=== PATIENT | female | born 1985 | race Caucasian/White ===

== ENCOUNTER 2022-11-10 18:48 | Emergency (ER) | payer OTHER ==
[2022-11-10 19:32] VITALS: TEMP 98; O2SAT 97
[2022-11-10] MEDS ORDERED: TORAdol 30 mg Injection IM ONE (20:06)
[2022-11-10 20:08] LABS: HCG URINE TEST NEGATIVE (NEGATIVE)
[2022-11-10 20:12] LABS: Appearance Clear (Clear); Bacteria None Seen /HPF (None Seen); Bilirubin Negative (Negative); Epithelial Cells Rare /HPF (None Seen); Glucose, Urine Negative (Negative); Hyaline Casts NONE SEEN /LPF (0-2); Ketones Negative (Negative); Leukocyte Esterase Negative (Negative); Nitrite Negative (Negative); Ph 5.5 (4.6-8.0); Protein,Urine Dip Negative (Negative); Specific Gravity 1.025 (1.005-1.030); Urobilinogen 0.2 mg/dL (0.2); WBC 0-2 /HPF (0-5)
[2022-11-10 20:13] LABS: ADD URINE CULTURE? NO (NO); Blood Small (Negative)
--- NOTE | 2022-11-10 20:14 | ERPHSYRPT ---
- History of Present Illness Time Seen by Provider: 11/10/22 19:30 Source: patient Exam Limitations: no limitations Patient Subjective Stated Complaint: pt states she has been having bright red rectal bleeding with clots for the last 3 days. Triage Nursing Assessment: pt alert and orietned, answers questions approp. pt ambulates into room with steady gait noted. respraitions nonlabored. abd soft and nontender to light palpation. bowel sounds hypo. skin warm and dry. Physician History: Patient is a 37-year-old female presents to our ED for evaluation of bright red blood per rectum x3 days. Patient states she has had these problems in the past. Patient had a colonoscopy and was diagnosed with a polyp. Patient states she has been experiencing excessive diarrhea recently. She is got some vague diffuse abdominal pain. No trauma. No fever. No nausea vomiting or diaphoresis. Symptoms are mild to moderate in intensity. No specific worsening improving factors. Daughter at bedside. Patient she otherwise feels well. She voices no other complaints or concerns at this time. Portions of this note were created with voice recognition technology. There may be grammatical, spelling, punctuation or sound alike errors Timing/Duration: day(s) (3 days) Severity: moderate Modifying Factors: Improves With: nothing Associated Symptoms: denies symptoms Allergies/Adverse Reactions: artificial strawberry flavoring Allergy (Severe, Uncoded 11/10/22 19:35) lips, throat, mouth swelling tape Allergy (Mild, Uncoded 11/10/22 19:35) Blisters Home Medications: Desvenlafaxine Succinate [Desvenlafaxine Succinate ER] 50 mg PO DAILY 11/10/22 [History] Hydrocodone/Acetaminophen [Hydrocodone-Acetamin 10-325 mg] 0.5 each PO BIDPRN PRN 11/10/22 [History] Sertraline HCl [Zoloft] 100 mg PO DAILY 11/10/22 [History] Hx Tetanus, Diphtheria Vaccination/Date Given: Yes Hx Influenza Vaccination/Date Given: No Hx Pneumococcal Vaccination/Date Given: No Immunizations Up to Date: Yes Travel Risk - International Travel Have you traveled outside of the country in past 3 weeks: No - Coronavirus Screening Are you exhibiting any of the following symptoms?: No Close contact with a COVID-19 positive Pt in past 14-21 Days: No - Vaccine Status Have you recieved a Covid-19 vaccination: No - Review of Systems Constitutional: No Symptoms, No Fever, No Chills Eyes: No Symptoms Ears, Nose, & Throat: No Symptoms Respiratory: No Symptoms, No Cough, No Dyspnea Cardiac: No Symptoms, No Chest Pain, No Edema, No Syncope Abdominal/Gastrointestinal: No Symptoms, No Abdominal Pain, No Nausea, No Vomiting, No Diarrhea Genitourinary Symptoms: No Symptoms, No Dysuria Musculoskeletal: No Symptoms, No Back Pain, No Neck Pain Skin: No Symptoms, No Rash Neurological: No Symptoms, No Dizziness, No Focal Weakness, No Sensory Changes Psychological: No Symptoms Endocrine: No Symptoms Hematologic/Lymphatic: No Symptoms Immunological/Allergic: No Symptoms All Other Systems: Reviewed and Negative - Past Medical History Pertinent Past Medical History: Yes Neurological History: Migraines ENT History: Other Cardiac History: Other Respiratory History: Asthma, Bronchitis Endocrine Medical History: No Pertinent History Musculoskeletal History: Arthritis, Fractures, Rheumatoid Arthritis GI Medical History: Hernia, Other, GERD History: Other Psycho-Social History: Depression, Anxiety, Eating Disorders, Other Female Reproductive Disorders: Other, Endometriosis Other Medical History: eye muscle issues as child. childhood asthma. irregular heart rate. preclampsia. frequent kidney infections. obcessive compulsive disorder and PTSD. right middle metacarpel fx and fourth knuckle. polycystic ovarian disease. constipation. ra in feet. gastropresis - Past Surgical History Past Surgical History: Yes Neuro Surgical History: No Pertinent History Cardiac: No Pertinent History Respiratory: No Pertinent History Gastrointestinal: No Pertinent History Genitourinary: No Pertinent History Musculoskeletal: Orthopedic Surgery Female Surgical History: Tubal Ligation, Section, Other Other Surgical History: T&A. Ovarian cystectomy x3. tonails removed from bilateral toes. colonoscopies x7, egd x6 - Social History Smoking Status: Current every day smoker How long have you smoked: 18yrs Exposure to second hand smoke: Yes Drug Use: marijuana, other Patient Lives Alone: Yes - Female History Hx Last Menstrual Period: 1 week Hx Now: No - Nursing Vital Signs Nursing Vital Signs: Initial Vital Signs Temperature 98.0 F 11/10/22 19:20 Pulse Rate 67 11/10/22 19:20 Respiratory Rate 16 11/10/22 19:20 Blood Pressure 98/48 11/10/22 19:20 O2 Sat by Pulse Oximetry 97 11/10/22 19:20 Pain Scale Pain Intensity 5 - Physical Exam General Appearance: no apparent distress, alert Eye Exam: PERRL/EOMI, eyes nml inspection Ears, Nose, Throat Exam: normal ENT inspection, TMs normal, pharynx normal, moist mucous membranes Neck Exam: normal inspection, non-tender, supple, full range of motion Respiratory Exam: normal breath sounds, lungs clear, airway intact, No respiratory distress Cardiovascular Exam: regular rate/rhythm, normal heart sounds, normal peripheral pulses Gastrointestinal/Abdomen Exam: soft, normal bowel sounds, other (Rectal exam performed with RN. No hemorrhoids. No fissures. No lesions. No active bleeding. Normal hearing anatomy.), No tenderness, No mass Back Exam: normal inspection, normal range of motion, No CVA tenderness, No vertebral tenderness Extremity Exam: normal inspection, normal range of motion, pelvis stable Neurologic Exam: alert, oriented x 3, cooperative, normal mood/affect, nml cerebellar function, nml station & gait, sensation nml, No motor deficits Skin Exam: normal color, warm, dry, No rash Lymphatic Exam: No adenopathy SpO2 Interpretation: normal SpO2: 97 O2 Delivery: Room Air - Course Nursing assessment & vital signs reviewed: Yes - CT Exams Abdomen/Pelvis CT Interpretation: Tele-radiologist Report (No comps normal appendectomy minimal diverticulosis otherwise negative. Nonobstructing left renal punctate stone) Ordered Tests: Active Orders 24 hr Category Date Time Status ABDOMEN AND PELVIS W/0 CONTRAS [CT] Stat Exams 11/10/22 20:12 Taken HCG QUALITATIVE, URINE Stat Lab 11/10/22 19:45 Completed UA W/RFX UR CULTURE Stat Lab 11/10/22 19:45 Completed Medication Summary Discontinued Medications Generic Name Dose Route Start Last Admin Trade Name Freq PRN Reason Stop Dose Admin Ketorolac Tromethamine 30 mg 11/10/22 20:06 11/10/22 20:19 Ketorolac Tromethamine 30 Mg/Ml Inj IM 11/10/22 20:07 30 mg STAT ONE Administration Ketorolac Tromethamine Confirm 11/10/22 20:16 Ketorolac Tromethamine 30 Mg/Ml Inj Administered 11/10/22 20:17 Dose 30 mg .ROUTE .Fashion One-Astech ONE Lab/Rad Data: Laboratory Results 09/05/23 09/05/23 Range/Units 19:45 19:45 Urine Color Yellow (Yellow) Urine Appearance Clear (Clear) Urine pH 5.5 (4.6-8.0) Ur Specific [place] 1.025 (1.005-1.030) Urine Protein Negative (Negative) Urine Glucose (UA) Negative (Negative) mg/dL Urine Ketones Negative (Negative) Urine Blood Small A (Negative) Urine Nitrite Negative (Negative) Urine Bilirubin Negative (Negative) Urine Urobilinogen 0.2 (0.2) mg/dL Ur Leukocyte Esterase Negative (Negative) U Hyaline Cast (Auto) NONE SEEN (0-2) /LPF Urine Microscopic RBC 3-5 (0-5) /HPF Urine Microscopic WBC 0-2 (0-5) /HPF Ur Epithelial Cells Rare (None Seen) /HPF Urine Bacteria None Seen (None Seen) /HPF Urine Culture Reflexed NO (NO) Urine HCG, Qual NEGATIVE (NEGATIVE) - Progress Progress: improved Progress Note: Patient 37-year-old female presents to our ED for evaluation of rectal bleeding. Physical exam reveals vague abdominal tenderness. Otherwise negative CT abdomen pelvis negative for acute pathology. Urinalysis negative for infection. hCG negative. Patient received Toradol for some vague abdominal discomfort. Pain resolved. Patient remains asymptomatic. Will discharge home. Patient to follow-up with her primary care doctor will likely require a colonoscopy for further evaluation and treatment. Portions of this note were created with voice recognition technology. There may be grammatical, spelling, punctuation or sound alike errors Complexity of problems addressed is moderate acute complicated Complex of data reviewed and analyzed is moderate. Test ordered. Test reviewed and analyzed. Clinical correlation made between laboratory testing imaging study and history and physical examination. Risk of complication and or risk morbidity/mortality of patient management is low. Patient discharged home. Vital stable. Plan of care established for shared decision making. No social determinants of health present to impede follow-up. Portions of this note were created with voice recognition technology. There may be grammatical, spelling, punctuation or sound alike errors 11/10/22 21:30 Counseled pt/family regarding: lab results, diagnosis, need for follow-up, rad results - Departure Departure Disposition: Home Clinical Impression: Nephrolithiasis, Bright red blood per rectum, Mild diverticulosis Condition: Stable Critical Care Time: No Referrals: PAMELA COCHRAN [Primary Care Provider] - Follow up/PCP as directed Additional Instructions: Discharge/Care Plan FRITZ JOYCE was seen on 11/10/22 in the Emergency Room. The patient was counseled regarding Diagnosis,Lab results, Imaging studies, need for follow up and when to return to the Emergency Room. Prescriptions given: Discharge Note I have spoken with the patient and/or caregivers. I have explained the patient's condition, diagnosis and treatment plan based on the information available to me at this time. I have answered the patient's and/or caregiver's questions and addressed any concerns. The patient and/or caregivers have as good understanding of the patient's diagnosis, condition and treatment plan as can be expected at this point. The vital signs have been stable. The patient's condition is stable and appropriate for discharge from the emergency department. The patient will pursue further outpatient evaluation with the primary care physician or other designated or consulting physician as outlined in the discharge instructions. The patient and/or caregivers are agreeable to this plan of care and follow-up instructions have been explained in detail. The patient and/or caregivers have received these instruction. The patient/and or caregivers are aware that any significant change in condition or worsening of symptoms should prompt an immediate return to this or the closest emergency department or call 911.
[2022-11-10] MEDS ORDERED: TORAdol 30 mg Injection ONE (20:16)
[2022-11-10 21:47] VITALS: RESP 18
[2022-11-10 21:48] VITALS: BP 100/66; PULSE 52
--- NOTE | 2022-11-11 08:44 | XRAY ---
Indication: Abdomen pain and blood in stool. Multiple contiguous axial images obtained through the abdomen and pelvis without contrast. Comparison: None Lung bases demonstrates small right base calcified granuloma and minimal fibrosis/scarring. Heart not enlarged. Stomach mildly distended with food/fluid. Noncontrasted stomach and bowel loops appear nonobstructed with normal appearing appendix. Minimal scattered colonic diverticulosis without diverticulitis. Left kidney demonstrates nonobstructing punctate calculus. No free fluid/air. Remaining liver, gallbladder, pancreas, spleen, adrenal glands, kidneys, ureters, bladder, uterus, and aorta are unremarkable for noncontrast exam. Osseous structures intact. Previous ventral hernia repair with intact mesh graft. Impression: 1. Colonic diverticulosis, nonobstructing left renal punctate calculus, and old granulomatous disease. 2. Remaining CT abdomen/pelvis without contrast exam is negative.
== END 2022-11-10 21:47 | disposition home or self-care (01) ==
LOC: ED 18:48
DX: N20.0 Calculus of kidney (principal); K62.5 Hemorrhage of anus and rectum; K57.90 Diverticulosis of intestine, part unspecified, without perforation or abscess without bleeding; R19.7 Diarrhea, unspecified; R10.9 Unspecified abdominal pain; Z79.891 Long term (current) use of opiate analgesic; Z79.899 Other long term (current) drug therapy; Z28.310 Unvaccinated for COVID-19; Z72.0 Tobacco use
CPT/HCPCS: 74176; 81001; 81025; 96372; 99283; J1885

== ENCOUNTER 2023-02-17 19:20 | Emergency (ER) | payer OTHER ==
[2023-02-17 19:39] VITALS: TEMP 97.7
--- NOTE | 2023-02-17 19:59 | ERPHSYRPT ---
- History of Present Illness Time Seen by Provider: 02/17/23 19:40 Historian: patient Exam Limitations: no limitations Patient Subjective Stated Complaint: pt states she began having chest pain approx 1 hour prior to coming into er and has been nauseated. points to mid hao rnal for where chest pain is nad denies radiation of pain. rates 5/10 and describes as stabbing. Triage Nursing Assessment: pt alert and oriented, answers questions approp. te arful at times. pt ambulates lowly into room with steady gait noted. respirations nonlabored. skin warm and dry. heart rate 82 sinus rhythm on monitor. Physician History: Patient is a 37-year-old female who presents to emergency department for evaluation of chest pain. Chest pain located mid sternum. Pain described as a stabbing sensation rated 5 out of 10. Pain is localized no radiation. No associated nausea vomiting or diaphoresis. Patient has no significant card iovascular risk factors. Patient does report a history of GERD. Patient otherwise feels well. She voices no other complaints or concerns at this time. No active pain at this time As a side note, patient reports she was diagnosed with a "GI bleed" at [facility] and will be following up with her GI doctor. Portions of this note were created with voice recognition technology. There may be grammatical, spelling, punctuation or sound alike errors Timing/Duration: today Activities at Onset: none Quality: sharpness Location: substernal Chest Pain Radiation: no radiation Severity of Pain-Max: moderate Severity of Pain-Current: mild Associated Symptoms: denies symptoms Prior Chest Pain/Cardiac Workup: no prior chest pain Nitro Today/Relief: no nitro taken today Aspirin Treatment Today: no aspirin today Allergies/Adverse Reactions: ciprofloxacin [From Cipro] Adverse Reaction (Intermediate, Verified 02/17/23 19:39) Vomiting artificial strawberry flavoring Allergy (Severe, Uncoded 02/17/23 19:39) lips, throat, mouth swelling tape Allergy (Mild, Uncoded 02/17/23 19:39) Blisters Home Medications: Desvenlafaxine Succinate [Desvenlafaxine Succinate ER] 50 mg PO DAILY 11/10/22 [History] Hydrocodone/Acetaminophen [Hydrocodone-Acetamin 10-325 mg] 0.5 each PO BIDPRN PRN 11/10/22 [History] Albuterol 2.5 mg/3 ml Neb [Proventil 2.5 mg/3 ml Neb] 2.5 mg IH Q6HPRN PRN 02/17/23 [History] Albuterol Sulfate [Albuterol Sulfate Hfa] 2 inh IH Q4H PRN PRN 02/17/23 [History] Diclofenac Sodium 50 mg [Voltaren 50 mg] 50 mg PO DAILY 02/17/23 [History] Esomeprazole Magnesium [Nexium 24Hr] 20 mg PO DAILY 02/17/23 [History] Levothyroxine Sodium 50 Mcg [Synthroid 50 Mcg] 50 mcg PO DAILY 02/17/23 [History] Lysine [l-Lysine] 500 mg PO DAILY 02/17/23 [History] Potassium Chloride [Klor-Con 8] 8 meq PO BID 02/17/23 [History] Promethazine HCl 25 mg PO Q6HPRN PRN 02/17/23 [History] Quetiapine Fumarate 25 mg PO DAILY 02/17/23 [History] ondansetron HCL [Ondansetron HCl] 4 mg PO Q4H PRN PRN 02/17/23 [History] Hx Tetanus, Diphtheria Vaccination/Date Given: Yes Hx Influenza Vaccination/Date Given: No Hx Pneumococcal Vaccination/Date Given: No Immunizations Up to Date: Yes Travel Risk - International Travel Have you traveled outside of the country in past 3 weeks: No - Coronavirus Screening Are you exhibiting any of the following symptoms?: No Close contact with a COVID-19 positive Pt in past 14-21 Days: No - Vaccine Status Have you recieved a Covid-19 vaccination: No - Review of Systems Constitutional: No Symptoms, No Fever, No Chills Eyes: No Symptoms Ears, Nose, & Throat: No Symptoms Respiratory: No Symptoms, No Cough, No Dyspnea Cardiac: No Symptoms, No Chest Pain, No Edema, No Syncope Abdominal/Gastrointestinal: No Symptoms, No Abdominal Pain, No Nausea, No Vomiting, No Diarrhea Genitourinary Symptoms: No Symptoms, No Dysuria Musculoskeletal: No Symptoms, No Back Pain, No Neck Pain Skin: No Symptoms, No Rash Neurological: No Symptoms, No Dizziness, No Focal Weakness, No Sensory Changes Psychological: No Symptoms Endocrine: No Symptoms Hematologic/Lymphatic: No Symptoms Immunological/Allergic: No Symptoms All Other Systems: Reviewed and Negative - Past Medical History Pertinent Past Medical History: Yes Neurological History: Migraines ENT History: Other Cardiac History: Other Respiratory History: Asthma, Bronchitis Endocrine Medical History: No Pertinent History Musculoskeletal History: Arthritis, Fractures, Rheumatoid Arthritis GI Medical History: Hernia, Other, GERD History: Other Psycho-Social History: Depression, Anxiety, Eating Disorders, Other Female Reproductive Disorders: Other, Endometriosis Other Medical History: eye muscle issues as child. childhood asthma. irregular heart rate. preclampsia. frequent kidney infections. obcessive compulsive disorder and PTSD. right middle metacarpel fx and fourth knuckle. polycystic ovarian disease. constipation. ra in feet. gastropresis. ptsd - Past Surgical History Past Surgical History: Yes Neuro Surgical History: No Pertinent History Cardiac: No Pertinent History Respiratory: No Pertinent History Gastrointestinal: No Pertinent History Genitourinary: No Pertinent History Musculoskeletal: Orthopedic Surgery Female Surgical History: Tubal Ligation, Section, Other Other Surgical History: T&A. Ovarian cystectomy x3. tonails removed from bilateral toes. colonoscopies x7, egd x6 - Social History Smoking Status: Current every day smoker How long have you smoked: 18yrs Exposure to second hand smoke: Yes Drug Use: none, other Patient Lives Alone: No - Female History Hx Last Menstrual Period: 2 weeks Hx Now: No - Nursing Vital Signs Nursing Vital Signs: Initial Vital Signs Temperature 97.7 F 02/17/23 19:22 Pulse Rate 81 02/17/23 19:22 Respiratory Rate 16 02/17/23 19:22 Blood Pressure 113/72 02/17/23 19:22 O2 Sat by Pulse Oximetry 97 02/17/23 19:22 Pain Scale Pain Intensity 5 - Physical Exam General Appearance: no apparent distress, alert Eye Exam: PERRL/EOMI, eyes nml inspection Ears, Nose, Throat Exam: normal ENT inspection, moist mucous membranes Neck Exam: normal inspection, non-tender, supple, full range of motion Respiratory Exam: normal breath sounds, lungs clear, No respiratory distress Cardiovascular Exam: regular rate/rhythm, normal heart sounds Gastrointestinal/Abdomen Exam: soft, No tenderness, No mass Back Exam: normal inspection, No CVA tenderness, No vertebral tenderness Extremity Exam: normal inspection, normal range of motion Neurologic Exam: alert, oriented x 3, cooperative, normal mood/affect, sensation nml, No motor deficits Skin Exam: normal color, warm, dry Lymphatic Exam: No adenopathy SpO2 Interpretation: normal SpO2: 96 O2 Delivery: Room Air - Course Nursing assessment & vital signs reviewed: Yes EKG Interpreted by Me: RATE (84), Sinus Rhythm, NORMAL AXIS, NORMAL INTERVALS - Radiology Exams Chest X-ray Interpretation: Interpreted by me (No acute process) Ordered Tests: Active Orders 24 hr Category Date Time Status Hearing Therapy Director STAT Care 02/17/23 19:46 Active EKG-ER Only STAT Care 02/17/23 19:45 Active Pulse Oximetry (ED) STAT Care 02/17/23 19:45 Active CHEST 1 VIEW (PORTABLE) Stat Exams 02/17/23 20:50 Taken CBC W DIFF Stat Lab 02/17/23 20:00 Completed CMP Stat Lab 02/17/23 20:00 Completed D-DIMER QUANTITATIVE Stat Lab 02/17/23 20:00 Completed TROPONIN Q4H Lab 02/17/23 20:00 Completed TROPONIN Q4H Lab 02/18/23 00:00 Ordered TROPONIN Q4H Lab 02/18/23 04:00 Ordered TROPONIN Stat Lab 02/17/23 21:40 Completed Lab/Rad Data: Laboratory Result Diagrams 02/17/23 20:00 02/17/23 20:00 Laboratory Results 02/17/23 02/17/23 02/17/23 Range/Units 21:40 20:00 20:00 WBC (4.0-10.5) x10^3/uL RBC (4.1-5.4) x10^6/uL Hgb (12.0-16.0) g/dL Hct (35-47) % MCV (78-100) fL MCH (26-32) pg MCHC (32-36) g/dL RDW (11.5-14.0) % Plt Count (150-450) x10^3/uL MPV (7.5-11.0) fL Gran % (36.0-66.0) % Immature Gran % (Auto) (0.00-0.4) % Nucleat RBC Rel Count (0.00-0.1) % Eos # (Auto) (0-0.5) x10^3/uL Immature Gran # (Auto) (0.00-0.03) x10^3u/L Absolute Lymphs (auto) (1.0-4.6) x10^3/uL Absolute Monos (auto) (0.0-1.3) x10^3/uL Absolute Nucleated RBC (0.00-0.01) x10^3u/L Lymphocytes % (24.0-44.0) % Monocytes % (0.0-12.0) % Eosinophils % (0.00-5.0) % Basophils % (0.0-0.4) % Absolute Granulocytes (1.4-6.9) x10^3/uL Basophils # (0-0.4) x10^3/uL D-Dimer < 0.19 (0.0-0.50) mg/L Sodium (137-145) mmol/L Potassium (3.5-5.1) mmol/L Chloride (98-107) mmol/L Carbon Dioxide (22-30) mmol/L Anion Gap (5-15) MEQ/L BUN (7-17) mg/dL Creatinine (0.52-1.04) mg/dL Estimated GFR ML/MIN Glucose (74-106) mg/dL Calcium (8.4-10.2) mg/dL Total Bilirubin (0.2-1.3) mg/dL AST (14-36) U/L ALT (0-35) U/L Alkaline Phosphatase (38-126) U/L Troponin I < 0.012 < 0.012 (0.000-0.034) ng/mL Serum Total Protein (6.3-8.2) g/dL Albumin (3.5-5.0) g/dL Influenza Type A Ag (NEGATIVE) Influenza Type B Ag (NEGATIVE) RSV (PCR) (NEGATIVE) SARS-CoV-2 (PCR) (NEGATIVE) 02/17/23 02/17/23 02/17/23 Range/Units 20:00 20:00 19:55 WBC 7.1 (4.0-10.5) x10^3/uL RBC 5.42 H (4.1-5.4) x10^6/uL Hgb 15.2 (12.0-16.0) g/dL Hct 47.4 H (35-47) % MCV 87.5 (78-100) fL MCH 28.0 (26-32) pg MCHC 32.1 (32-36) g/dL RDW 12.5 (11.5-14.0) % Plt Count 228 (150-450) x10^3/uL MPV 10.9 (7.5-11.0) fL Gran % 65.2 (36.0-66.0) % Immature Gran % (Auto) 0.1 (0.00-0.4) % Nucleat RBC Rel Count 0.0 (0.00-0.1) % Eos # (Auto) 0.04 (0-0.5) x10^3/uL Immature Gran # (Auto) 0.01 (0.00-0.03) x10^3u/L Absolute Lymphs (auto) 2.01 (1.0-4.6) x10^3/uL Absolute Monos (auto) 0.37 (0.0-1.3) x10^3/uL Absolute Nucleated RBC 0.00 (0.00-0.01) x10^3u/L Lymphocytes % 28.3 (24.0-44.0) % Monocytes % 5.2 (0.0-12.0) % Eosinophils % 0.6 (0.00-5.0) % Basophils % 0.6 (0.0-0.4) % Absolute Granulocytes 4.64 (1.4-6.9) x10^3/uL Basophils # 0.04 (0-0.4) x10^3/uL D-Dimer (0.0-0.50) mg/L Sodium 137 (137-145) mmol/L Potassium 3.9 (3.5-5.1) mmol/L Chloride 106 (98-107) mmol/L Carbon Dioxide 23 (22-30) mmol/L Anion Gap 12.2 (5-15) MEQ/L BUN 6 L (7-17) mg/dL Creatinine 0.58 (0.52-1.04) mg/dL Estimated GFR 120.2 ML/MIN Glucose 108 H (74-106) mg/dL Calcium 9.2 (8.4-10.2) mg/dL Total Bilirubin 0.40 (0.2-1.3) mg/dL AST 22 (14-36) U/L ALT 18 (0-35) U/L Alkaline Phosphatase 65 (38-126) U/L Troponin I (0.000-0.034) ng/mL Serum Total Protein 7.5 (6.3-8.2) g/dL Albumin 4.5 (3.5-5.0) g/dL Influenza Type A Ag NEGATIVE (NEGATIVE) Influenza Type B Ag NEGATIVE (NEGATIVE) RSV (PCR) NEGATIVE (NEGATIVE) SARS-CoV-2 (PCR) NEGATIVE (NEGATIVE) - Progress Progress: improved Air Movement: good Progress Note: Heart score is 3 02/17/23 22:27 Patient 37-year-old female presents to our ED with chest pain. EKG reveals normal sinus rhythm. No acute process observed on chest x-ray. However formal report pending. CBC CMP essentially nonremarkable. D-dimer negative. Troponin negative x 2. COVID test negative as well. Patient reassessed. Vital stable. Patient has no active complaints. Patient denies chest pain. She has no discomfort and is currently asymptomatic. heart score is 3. No indication for further workup at this time. Patient agrees to follow-up with her primary care doctor within 48 hours for reevaluation. She voices no other complaints or concerns at this time. Portions of this note were created with voice recognition technology. There may be grammatical, spelling, punctuation or sound alike errors Complexity of problems addressed is moderate acute complicated. No critical care time Complexity of data reviewed and analyzed is moderate. Test ordered test revie wed. Results analyzed and correlated clinically with history and physical exam. Risk of complication and or risk of morbidity/mortality of patient management is low. Vital stable. Time spent to discharge patient is approximately 10 minutes. Plan of care established for shared decision making. No social determinants of health present impede follow-up. Portions of this note were created with voice recognition technology. There may be grammatical, spelling, punctuation or sound alike errors 02/17/23 22:30 Blood Culture(s) Obtained: No Antibiotics given: No Counseled pt/family regarding: lab results, diagnosis, need for follow-up - Departure Departure Disposition: Home Clinical Impression: Chest pain Condition: Stable Critical Care Time: No Referrals: PAMELA COCHRAN [Primary Care Provider] - Follow up/PCP as directed Instructions: Chest Pain (DC) Additional Instructions: Discharge/Care Plan FRITZ JOYCE was seen on 02/17/23 in the Emergency Room. The patient was counseled regarding Diagnosis,Lab results, Imaging studies, need for follow up and when to return to the Emergency Room. Prescriptions given: Discharge Note I have spoken with the patient and/or caregivers. I have explained the patient's condition, diagnosis and treatment plan based on the information available to me at this time. I have answered the patient's and/or caregiver's questions and addressed any concerns. The patient and/or caregivers have as good understanding of the patient's diagnosis, condition and treatment plan as can be expected at this point. The vital signs have been stable. The patient's condition is stable and appropriate for discharge from the emergency department. The patient will pursue further outpatient evaluation with the primary care physician or other designated or consulting physician as outlined in the discharge instructions. The patient and/or caregivers are agreeable to this plan of care and follow-up instructions have been explained in detail. The patient and/or caregivers have received these instruction. The patient/and or caregivers are aware that any significant change in condition or worsening of symptoms should prompt an immediate return to this or the closest emergency department or call 911.
[2023-02-17 20:03] LABS: Eosinophil % 0.6 % (0.00-5.0); Hematocrit 47.4 % (35-47); Hemoglobin 15.2 g/dL (12.0-16.0); Lymphocytes % 28.3 % (24.0-44.0); Mean Cell Volume 87.5 fL (78-100); Mean Corpuscular Hgb Concent. 32.1 g/dL (32-36); Mean Platelet Volume 10.9 fL (7.5-11.0); Monocytes % 5.2 % (0.0-12.0); Neutrophil % 65.2 % (36.0-66.0); Platelet Count 228 x10^3/uL (150-450); Red Blood Count 5.42 x10^6/uL (4.1-5.4); Red Cell Distribution Width 12.5 % (11.5-14.0); White Blood Count 7.1 x10^3/uL (4.0-10.5)
[2023-02-17 20:04] LABS: Absolute Neutrophil Ct (ANC) 4.64 x10^3/uL (1.4-6.9); BASOPHIL % 0.6 % (0.0-0.4); Basophil (Absolute #) 0.04 x10^3/uL (0-0.4); Eosinophil (Absolute #) 0.04 x10^3/uL (0-0.5); IMMATURE GRAN # 0.01 x10^3u/L (0.00-0.03); IMMATURE GRAN % 0.1 % (0.00-0.4); Lymphocyte (Absolute #) 2.01 x10^3/uL (1.0-4.6); Monocyte (Absolute #) 0.37 x10^3/uL (0.0-1.3)
[2023-02-17 20:19] LABS: ALBUMIN 4.5 g/dL (3.5-5.0); ANION GAP 12.2 MEQ/L (5-15); BILIRUBIN,TOTAL 0.4 mg/dL (0.2-1.3); Calcium 9.2 mg/dL (8.4-10.2); Creatinine 1 0.58 mg/dL (0.52-1.04); EST GLOMERULAR FILTRATION RATE 120.2 ML/MIN; Potassium 3.9 mmol/L (3.5-5.1); Total Protein 7.5 g/dL (6.3-8.2)
[2023-02-17 20:42] VITALS: RESP 18
[2023-02-17 20:42] LABS: INFLUENZA A NEGATIVE (NEGATIVE); INFLUENZA B NEGATIVE (NEGATIVE); RESPIRATORY SYNCTIAL VIRUS NEGATIVE (NEGATIVE); SARS-CoV-2 Xpert Express NEGATIVE (NEGATIVE)
[2023-02-17 22:15] VITALS: BP 88/54; PULSE 81; O2SAT 96
--- NOTE | 2023-02-18 08:42 | XRAY ---
Indication: Pain. Comparison: None Portable chest demonstrates normal heart and lungs. Bony thorax intact.
== END 2023-02-17 22:44 | disposition home or self-care (01) ==
LOC: ED 19:20
DX: R07.9 Chest pain, unspecified (principal); Z79.891 Long term (current) use of opiate analgesic; Z79.899 Other long term (current) drug therapy; Z28.310 Unvaccinated for COVID-19; Z72.0 Tobacco use
CPT/HCPCS: 0241U; 36000; 36415; 71045; 80053; 84484; 85025; 85379; 93005; 93041; 94760; 99284